=== PATIENT | female | born 1945 | race Caucasian/White ===

== ENCOUNTER 2022-09-26 12:28 | Outpatient (CLI) | payer OTHER, SELFPAY ==
[2022-09-26 14:28] VITALS: BP 128/76; PULSE 76
--- NOTE | 2022-09-26 17:16 | W.PM.STED ---
Stress Test Note Date Date of test: 09/26/22 Providers Primary care provider: Radha Carbajal Stress test physician: Alexy Marinelli Stress Test Note Stress test ordered: Stress Echo Indication for test: Chest pain Results discussion: Patient is a very nice 76-year-old female who presents for the above test, discussion the risks benefits side effects and review of the cardiac stress test medical history form she would like to proceed pretest EKG shows normal sinus rhythm with a ventricular rate of 72, blood pressure [address] on 80. No acute ST wave changes are noted. Standard Mike protocol is followed over a time course of 6 minutes 2nd, maximum heart rate was 132, which is 108% of the target, patient had some mild fatigue, but overall conditioning was felt to be excellent, she had no chest pain or any anginal equivalent symptoms. Review of the tracing showed no evidence of ST wave changes, no dysrhythmias, and recovery has normal. Impression: Negative electrographic portion of stress echo Follow up suggested: Await for echo images these will be read by Cardiology clinical correlation with these will be needed, patient left this testing facility in excellent condition. There were no complications
== END 2022-09-26 12:29 | disposition home or self-care (01) ==
LOC: STRESS 12:28
PROVIDERS: PCP Family Medicine; Visit Provider Family Medicine
DX: R07.89 Other chest pain (principal)
CPT/HCPCS: 93016; 93325; 93351

== ENCOUNTER 2023-11-28 13:51 | Outpatient (CLI) | payer OTHER, SELFPAY ==
--- NOTE | 2023-11-28 14:00 | XR_ITS ---
Patient: MAY GUERRERO Facility:?[facility] Patient ID:?[id number] Site Patient ID:?[id number]. Site :?[id number] Study:?DEXA-Bone Density SPINE/BOTH HIPS-11/28/2023 2:14:50 PM Ordering Physician:WANG Final Report: DXA BONE MINERAL DENSITY STUDY Reason for exam: Estrogen deficiency. Current height (in): 60. Weight (lb): 147. Menopause age: 53. Ethnicity: White. 1. Have you had a previous hip or vertebral fracture? No. 2. Have you had any fractures during your adult life which did not result from significant trauma (e.g., auto accident)? No. 3. Did either of your parents have a hip fracture? No. 4. Do you smoke? No. 5. Have you ever taken Glucocorticoids? No. 6. Do you have rheumatoid arthritis? No. 7. Do you have secondary osteoporosis? No. 8. Do you drink 3 or more alcoholic drinks per day? No. 9. Are you being treated for osteoporosis? No. 10. Have you ever taken any of the following medications: Actonel, Evista, Fosamax, Miacalcin, Reclast, Boniva, Forteo, HRT (i.e., estrogen/hormone therapy), Protelos, Prolia, Vitamin D, Calcium, other ? please specify. ANSWER: Yes, vitamin D and calcium. 11. Do you have any of the following medical conditions: Anorexia or bulimia, asthma or emphysema, end stage renal disease, hyperparathyroidism, any seizure disorders, cancer, inflammatory bowel diseases, hysterectomy, other ? please specify. ANSWER: Yes, hysterectomy. 12. What was your maximum height (inches)? 64. 13. Do you perform weight bearing exercise regularly? Yes. 14. Do you regularly consume dairy products? Yes. 15. Do you drink caffeinated beverages? Yes. If female: 16. At what age did your period start? 12. 17. Are you premenopausal? No. 18. How many full-term pregnancies have you had? 3. 19. Have you ever missed your period for more than 6 months in a row (not including or menopause)? No. TECHNIQUE: Bone mineral density study was performed using the [employer]. FINDINGS: The results of the study expressed as bone mineral density (BMD) are as follows: Lumbar spine L1 to L4: BMD: 0.916 g/cm2. T-score: -1.2. Z-score: 1.4 Neck Left: BMD: 0.683 g/cm2. T-score: -1.5. Z-score: 0.7 Right: BMD: 0.647 g/cm2. T-score: -1.8. Z-score: 0.4 Total Left: BMD: 0.872 g/cm2. T-score: -0.6. Z-score: 1.4 Right: BMD: 0.880 g/cm2. T-score: -0.5. Z-score: 1.4 IMPRESSION: Osteopenia. *Comparison exams done prior to 01/2020 were performed on different unit, [employer]. COMPARISON: Compared with scan of 10/13/2021, the bone mineral density has increased by 3.9 percent at the spine and increased by 6.2 percent at the hip. Compared with scan of 08/25/2020, the bone mineral density has decreased by 1.1 percent at the spine and decreased by 0.7 percent at the hip. FRAX 10-year Fracture Risk Major Osteoporotic Fracture: 14% Hip Fracture: 3.5% Reported Risk Factors: [place] ) Neck BMD=0.647, BMI=28.7 Long Castanon M.D. Diagnostic Radiologist [email or web address] CANDIDA/isra D& Transcribed: 12:32 p.mMihaela dhaliwal/Dictated by: Long Castanon MD @ 11/29/2023 8:22:00 AM Signed by:?Long Castanon MD @11/29/2023 12:33:22 PM (Electronic Signature)
== END 2023-11-28 13:52 | disposition home or self-care (01) ==
LOC: RAD 13:51
PROVIDERS: PCP Family Medicine; Visit Provider Family Medicine
DX: E28.39 Other primary ovarian failure (principal); M85.88 Other specified disorders of bone density and structure, other site
CPT/HCPCS: 77080